=== PATIENT | female | born 1940 | race Caucasian/White ===

== ENCOUNTER 2023-11-25 12:14 | Emergency (ER) | payer MEDICARE, SELFPAY ==
--- NOTE | ~2023-11-25 | XR_ITS ---
EXAMINATION: XR chest 2V DATE: 11/25/2023 13:09 INDICATION: Dizziness yesterday morning TECHNIQUE: frontal and lateral views of the chest were obtained. COMPARISON: Chest radiograph dated 03/30/2023 FINDINGS: The lungs remain clear with no focal airspace opacities, pulmonary edema, pleural effusion or pneumot horax. The cardiomediastinal silhouette is normal. Visualized bones and soft tissues are unremarkable . IMPRESSION: 1. No acute cardiopulmonary disease. Reviewed, dictated and finalized at location A.
--- NOTE | ~2023-11-25 | CT_ITS ---
EXAMINATION: CT brain wo con DATE: 11/25/2023 13:00 INDICATION: Dizziness TECHNIQUE: Computed tomography (CT) of the head was performed without intravenous contrast. Sagittal and coronal reconstructions were performed. The dose Mikal head The dose-length product was 605.33 mGy-cm. COMPARISON: head CT dated 01/29/2005 and brain MR dated 08/12/2008 FINDINGS: No acute intracranial hemorrhage, acute infarction or abnormal extra axial fluid collection. There is mild scattered white matter hypoattenuation consistent with chronic small vessel ischemic disease. S ymmetric prominence of the sulci and ventricles consistent with mild to moderate age-appropriate diff use cerebral volume loss. No mass/mass effect. Changes of bilateral intraocular lens replacement. The orbits, paranasal sinuses and mastoid air cells are normal. IMPRESSION: 1. Age-related changes including mild to moderate diffuse volume loss and mild scattered white matter hypoattenuation consistent with chronic small vessel ischemic disease. No acute intracranial process . Reviewed, dictated and finalized at location A. IMPRESSION: 1. Age-related changes including mild to moderate diffuse volume loss and mild scattered white matter hypoattenuation consistent with chronic small vessel isc hemic disease. No acute intracranial process.
--- NOTE | 2023-11-25 12:42 | ECG_ITS ---
Test Date: 2023-11-25 12:53:50 Measurements Intervals [place] Rate: 68 P: 29 IN: 135 QRS: 59 QRSD: 90 T: 69 QT: 393 QTc: 420 Interpretive Statements SINUS RHYTHM POSSIBLE LEFT ATRIAL ENLARGEMENT RSR' IN V1 OR V2, RIGHT VCD OR RVH DELAYED PRECORDIAL R/S TRANSITION BASELINE ARTIFACT- I, II, III, AVR, AVL, AVF, V1-V6 BORDERLINE ECG No previous ECG available for comparison Electronically Signed On 11-25-2023 17:48:48 CDT by Liam Rae D.O.
[2023-11-25 12:43] VITALS: BP 141/64; PULSE 81; RESP 20; TEMP 36.2; O2SAT 94
--- NOTE | 2023-11-25 12:43 | ED.DIZZY ---
HPI - Dizziness General Chief Complaint: Dizziness <Madelyn Hughes PA-C - Last Filed: 11/26/23 11:20> Stated Complaint: dizziness <Madelyn Hughes PA-C - Last Filed: 11/26/23 11:20> Time Seen by Provider: 11/25/23 12:43 <Madelyn Hughes PA-C - Last Filed: 11/26/23 11:20> Focused HPI: This is an 83-year-old female that presents to the emergency department for dizziness. Ongoing since yesterday. Reports feeling lightheaded. Also reports intermittent room spinning dizziness. Reports associated nausea and vomiting. Denies vision changes, focal numbness or weakness. GENERAL: Well-appearing, well-nourished, and in no acute distress. HEAD: Normocephalic, atraumatic. CHEST: Clear to auscultation. ?No respiratory distress. HEART: Regular rate and rhythm.? NEURO: ?Alert and oriented x3. Patient screened in triage and initial orders placed.? ?Additional care and disposition to be based upon?diagnostic testing and treatment. <Madelyn Hguhes PA-C - Last Filed: 11/26/23 11:20> History of Present Illness HPI Narrative: Patient is an 83-year-old female here with dizziness and vomiting. She states that yesterday morning she went from lying down to sitting up in bed and started experiencing dizziness. She describes it as feeling like the room was spinning. She got up to walk around her house and noticed that she felt unsteady on her feet. She continued to have dizziness symptoms throughout the day yesterday. She notes it kind of came and went in severity and seemed to get worse with sudden positional changes as well as moving her head quickly. When she woke up this morning she got out of bed, went and had a cup of coffee, she then stood up, started experiencing worsening dizziness and felt as though she may pass out. She also started having some diaphoresis and vomiting. Daughter was called and patient was brought into the emergency department for evaluation. She notes symptoms are not currently present at rest. She denies any current nausea. She denies any associated chest pain or shortness of breath. No recent travel or surgeries. No prior cardiac disease. No known cardiac risk factors. No prior history of stroke. Daughter does note that a couple of months ago she did have an episode where she had trouble speaking very briefly on a very hot day and had a negative workup through her primary care doctor which included an MRI, ultrasound and she was not found to have had a stroke or TIA. She has been normal since then. <Brittany Poole MD - Last Filed: 11/25/23 20:20> Related Data Allergies/Adverse Reactions: Allergies Allergy/AdvReac Type Severity Reaction Status Date / Time No Known Allergies Allergy Unknown Verified 11/25/23 12:47 <Madelyn Hughes PA-C - Last Filed: 11/26/23 11:20> Review of Systems Review of Systems: All systems reviewed & are unremarkable except as noted in HPI and below <Brittany Poole MD - Last Filed: 11/25/23 20:20> PMFSH Past Medical History Medical History: Medical History (Updated 11/26/23 @ 11:20 by Madelyn Hughes PA-C) History of depression <Madelyn Hughes PA-C - Last Filed: 11/26/23 11:20> Social History Social History: Social History (Updated 11/26/23 @ 11:19 by Madelyn Hughes PA-C) Substance use: never <Madelyn Hughes PA-C - Last Filed: 11/26/23 11:20> Exam Narrative: GENERAL: Well-appearing, well-nourished, and in no acute distress. HEAD: Normocephalic, atraumatic. EYES: PERRLA and EOMI. Bilateral fatigable horizontal nystagmus present. No vertical nystagmus. ENT: Nares clear. Mucous membranes moist. NECK: Supple. CHEST: Clear to auscultation. No respiratory distress. HEART: Regular rate and rhythm. Normal peripheral pulses. ABDOMEN: Soft, nontender, nondistended. EXTREMITIES: Normal range of motion. No edema. SKIN: Warm, dry, no rash. NEURO: No focal deficits. No upper lower extremity drift, no sensory deficit, normal fi
[2023-11-25 12:59] LABS: Basophils Absolute Auto 0.1 K/mm3 (0.0-0.1); Basophils Percent Auto 0.7 % (0.2-1.2); Eosinophils Absolute Auto 0.1 K/mm3 (0-0.3); Eosinophils Percent Auto 1.4 % (0-4.4); Hemoglobin 12.1 g/dL (12.0-15.0); Immature Granulocyte Absolute 0.02 K/mm3 (0.00-0.031); Immature Granulocyte Percent A 0.3 % (0-0.5); Lymphocytes Absolute Auto 1.48 K/mm3 (0.9-3.2); Lymphocytes Percent Auto 20.1 % (18.3-44.2); Mean Corpuscular HGB Conc 31.8 g/dl (32-36); Mean Corpuscular Hemoglobin 28.6 pg (26-34); Mean Corpuscular Volume 89.8 fl (80-100); Mean Platelet Volume 10.4 fl (7.4-10.4); Monocytes Absolute Auto 0.4 K/mm3 (0.1-0.6); Monocytes Percent Auto 5.3 % (2.6-8.5); Neutrophils Absolute Auto 5.3 K/mm3 (1.3-6.7); Neutrophils Percent Auto 72.2 % (45.5-73.1); Platelet Count Result 249 k/mm3 (150-375); Red Blood Count 4.23 M/mm3 (4.2-5.4); Red Cell Distribution Width 13.2 % (11.5-14.5); White Blood Count 7.4 K/mm3 (4.5-10.0)
[2023-11-25 13:09] LABS: Alanine Aminotransferase 14 U/L (6-35); Albumin Level 4.3 g/dL (3.5-5.1); Alkaline Phosphatase 52 U/L (38-126); Anion Gap 7 mmol/L (4-12); Aspartate Amino Transferase 26 U/L (14-36); Bilirubin,Total 0.5 mg/dL (0.2-1.3); Blood Urea Nitrogen 12 mg/dL (7-17); Calcium 8.8 mg/dL (8.4-10.2); Carbon Dioxide 28 mmol/L (22-30); Chloride 101 mmol/L (98-107); Estimated Glomerular Filt Rate > 60; Glucose 87 mg/dL (65-110); Potassium 3.7 mmol/L (3.4-5.0); Sodium 136 mmol/L (137-145)
[2023-11-25 13:39] VITALS: BP 150/85; PULSE 76; RESP 18; TEMP 36.4; O2SAT 100
[2023-11-25] MEDS: MECLIZINE HCL 25 MG TABLET PO (14:49)
[2023-11-25 15:25] VITALS: BP 112/89; PULSE 77; RESP 16; TEMP 36.7; O2SAT 100
[2023-11-25 16:00] LABS: Appearance Urine Clear (Clear); Bacteria Urine None Seen /hpf; Bilirubin Urine Negative (Negative); Blood Urine Negative (Negative); Color Urine Yellow (Yellow); Glucose Urine UA Negative (Negative); Ketones Urine Negative (Negative); Leukocyte Esterase Ur Trace LEU/UL (Negative); Nitrate Urine Negative (Negative); Non Pathogenic Casts 0-2; Protein Urine Negative (Negative); RBC Urine 0-2 /hpf (0-2); Specific Grav Ur 1.009 (1.001-1.035); Squamous Epithelial Cell Urine Occasional /hpf (Few); Urobilinogen Urine 0.2 mg/dL (<2.0); WBC Urine 0-5 /hpf (0-3)
[2023-11-25 16:02] LABS: Troponin I < 0.012 ng/mL (0.000-0.034)
[2023-11-25 16:05] LABS: Add Urine Microscopic? YES
[2023-11-25 16:58] VITALS: BP 137/89
== END 2023-11-25 16:59 | disposition home or self-care (01) ==
PROVIDERS: Physician Assistant; Emergency Provider Student in an Organized Health Care Education/Training Program; PCP Internal Medicine
DX: H81.10 Benign paroxysmal vertigo, unspecified ear (principal); R94.31 Abnormal electrocardiogram [ECG] [EKG]
CPT/HCPCS: 36415; 70450; 71046; 80053; 81001; 84484; 85025; 93005; 99284; A9270